=== PATIENT | female | born 1995 | race Caucasian/White ===

== ENCOUNTER 2017-07-04 20:16 | Emergency (ER) | payer OTHER ==
[~2017-07-04] VITALS: Ht 162.6 cm; Wt 83.6 kg
[~2017-07-04 20:16] MED LIST: ARTI99.0 OU; DIAM500C PO; IBUP-1114 PO; IBUP1TAB7 PO; IBUPOTC PO; LAMO1TAB PO; LORA10TA2 PO; SERO1TAB3 PO
--- NOTE | 2017-07-04 23:40 | REPUSA ---
Clinical history: Pain. Findings: Real-time transabdominal and transvaginal ultrasound images of the pelvis were obtained. An anteverted uterus is noted, measuring 8.4 x 3.6 x 4.4 cm. The uterus demonstrates normal echotexture and echogenicity. The endometrial stripe measures 18 mm and is within normal limits. The right ovary measures 2.7 x 2.2 x 1.9 cm. The left ovary measures 3.4 x 2.6 x 2.7 cm. There is a 1.[address] in the left ovary. No adnexal masses are seen. Color Doppler flow is seen within both ovaries. The re is no evidence of free fluid. Impression: 1. Echogenic, thickened endometrial stripe. In a patient of this age, this is likely a physiologic fi ndings. Correlation with the patient's menstrual cycle is recommended. 2. Simple left ovarian cyst.
[2017-07-05 00:41] VITALS: BP 141/90
== END 2017-07-05 00:43 | disposition home or self-care (01) ==
LOC: M ED 20:16
DX: N83.202 Unspecified ovarian cyst, left side (principal); J45.909 Unspecified asthma, uncomplicated; F60.5 Obsessive-compulsive personality disorder; Z87.42 Personal history of other diseases of the female genital tract; Z79.899 Other long term (current) drug therapy; Z88.5 Allergy status to narcotic agent; Z88.1 Allergy status to other antibiotic agents

== ENCOUNTER 2018-07-10 19:55 | Outpatient (CLI) | payer OTHER | END 2018-07-10 21:35 | disposition home or self-care (01) | LOC: M LDO 19:55 | DX: O36.8130 Decreased fetal movements, third trimester, not applicable or unspecified (principal); Z3A.34 34 weeks gestation of pregnancy | CPT/HCPCS: 59025 ==

== ENCOUNTER 2018-08-20 22:59 | Inpatient (IN) | payer OTHER ==
[2018-08-21] MEDS ORDERED: LR 1,000 ML IV (06:19)
[2018-08-21] MEDS ORDERED: OXYTOCIN DRIP 30 UNITS in APPROPRIATE DILUENT 1 EA IV (06:30)
[2018-08-21] MEDS ORDERED: ACETAMINOPHEN 500 MG TAB PO (11:30)
[2018-08-21] MEDS ORDERED: FENTANYL 2MCG/ML ROPIVACAINE 0.2% IN 0.9% NACL 200ML IVBAG As Ordered (13:09)
[2018-08-21] MEDS ORDERED: ePHEDrine SULFATE 25 MG/5 ML(5MG/ML) SYRINGE IV (14:05)
[2018-08-21] MEDS ORDERED: diphenhydrAMINE INJ 50MG/ML VIAL (J1200) IV (14:05)
[2018-08-21] MEDS ORDERED: FENTANYL/ROPIVACAINE/NACL BAG 200 ML EPIDURAL (14:05)
[2018-08-21] MEDS ORDERED: NALOXONE INJ 0.4 MG/1 ML VIAL (J2310) IV (14:05)
[2018-08-21] MEDS ORDERED: LACTATED RINGER'S 1000 ML IV (14:05)
[2018-08-21] MEDS ORDERED: EPIDURAL/PCA KEYS XX (14:05)
[2018-08-21] MEDS ORDERED: EPIDURAL COMMENT XX (14:05)
[2018-08-21] MEDS ORDERED: REFRIGERATOR IV KEYS XX (14:05)
[2018-08-21] MEDS ORDERED: ONDANSETRON 4MG/2ML VIAL (J2405) IV (14:05)
[2018-08-21] MEDS ORDERED: DOCUSATE SODIUM 100 MG CAP PO (18:00)
[2018-08-21] MEDS ORDERED: MEASLES,MUMPS,RUBELLA VACCINE INJ (MMR-II) (90707) SC (18:00)
[2018-08-21] MEDS ORDERED: MOM 30ML SUSPENSION UDC PO (18:00)
[2018-08-21] MEDS ORDERED: ANUSOL HC CREAM 30GM TOP (18:00)
[2018-08-21] MEDS ORDERED: RHOGAM 300 MCG (1500 IU) INJ (J2790) IM (18:00)
[2018-08-21] MEDS ORDERED: DIBUCAINE 1% OINTMENT 30GM TOP (18:00)
[2018-08-21] MEDS ORDERED: METHYLERGONOVINE MALEATE 0.2 MG TAB PO (18:00)
[2018-08-21 18:01] LABS: CORD GAS ABE A -2.7; CORD GAS HCO3 A 25.8 MEQ/L; CORD GAS O2 SAT A < 15.0 %; CORD GAS PCO2 A 59.7 mmHg; CORD GAS PH A 7.254 UNITS; CORD GAS PO2 A < 10.0 mmHg; CORD GAS TCO2 A 27.7 MEQ/L
[2018-08-21 18:03] LABS: CORD GAS ABE V -4.3; CORD GAS HCO3 V 20.1 MEQ/L; CORD GAS O2 SAT V 72.1 %; CORD GAS PCO2 V 35.5 mmHg; CORD GAS PO2 V 29.1 mmHg; CORD GAS SBC V 20.3 MEQ/L; CORD GAS TCO2 V 21.2 MEQ/L
[2018-08-21] MEDS: LORATADINE 10 MG TAB PO (20:55)
[2018-08-21] MEDS: AcetaZOLAMIDE 500 MG ER CAP PO (20:55)
[2018-08-21] MEDS ORDERED: OXYTOCIN INJ 10 UNITS/ML VIAL (J2590) As Ordered (23:06)
[2018-08-22] MEDS: IBUPROFEN 800 MG TAB PO ×2 (00:57→14:22)
[2018-08-22] MEDS: PRENATAL VITAMINS CHEWABLE TABLET PO (08:31)
[2018-08-22] MEDS: LORATADINE 10 MG TAB PO (08:31)
[2018-08-22] MEDS: ACETAMINOPHEN 500 MG TAB PO ×2 (08:39→17:56)
[2018-08-22 09:17] LABS: HEMOGLOBIN 11.1 g/dl (12.0-15.5); MEAN CORPUSCULAR HEMOGLOBIN 29.9 pg (27.0-33.0); MEAN CORPUSCULAR HGB CONC 32.6 g/dl (32.0-36.5); MEAN CORPUSCULAR VOLUME 91.6 fl (80.0-96.0); PLATELET COUNT, AUTOMATED 172 10^3/uL (150-450); RED BLOOD COUNT 3.71 10^6/uL (4.00-5.40); RED CELL DISTRIBUTION WIDTH 14.2 % (11.5-14.5)
[2018-08-22] MEDS: AcetaZOLAMIDE 500 MG ER CAP PO (21:08)
[2018-08-23] MEDS: LORATADINE 10 MG TAB PO (08:18)
[2018-08-23] MEDS: PRENATAL VITAMINS CHEWABLE TABLET PO (08:18)
[2018-08-23] MEDS: ACETAMINOPHEN 500 MG TAB PO (08:19)
== END 2018-08-23 12:10 | disposition home or self-care (01) | DRG 807 ==
LOC: M LDO 22:59 → M LDI 08-21 02:19 → M OBS 08-21 19:56
PROC: 10E0XZZ Delivery of Products of Conception, External Approach (ICD-10-PCS; principal; 2018-08-22)
PROC: 0HQ9XZZ Repair Perineum Skin, External Approach (ICD-10-PCS; 2018-08-22)
DX: O48.0 Post-term pregnancy (principal); Z37.0 Single live birth; Z3A.40 40 weeks gestation of pregnancy; O99.214 Obesity complicating childbirth; E66.9 Obesity, unspecified; O69.81X0 Labor and delivery complicated by cord around neck, without compression, not applicable or unspecified; O70.0 First degree perineal laceration during delivery; Z68.32 Body mass index [BMI] 32.0-32.9, adult

== ENCOUNTER → 2018-08-21 | Outpatient (CLI) | payer OTHER ==
[~2018-08-21] MED LIST changes: -ARTI99.0 OU; -DIAM500C PO; -IBUP-1114 PO; -IBUP1TAB7 PO; -IBUPOTC PO; -LAMO1TAB PO; -LORA10TA2 PO; +OXYTOCIN 30 UNITS IN 0.9% NaCl 500ML IV BAG (J2590) As Ordered; -SERO1TAB3 PO
[2018-08-21 02:59] LABS: HEMATOCRIT 36.2 % (36.0-47.0); HEMOGLOBIN 11.8 g/dl (12.0-15.5); MEAN CORPUSCULAR HEMOGLOBIN 29.6 pg (27.0-33.0); MEAN CORPUSCULAR HGB CONC 32.6 g/dl (32.0-36.5); PLATELET COUNT, AUTOMATED 182 10^3/uL (150-450); RED BLOOD COUNT 3.98 10^6/uL (4.00-5.40); RED CELL DISTRIBUTION WIDTH 13.7 % (11.5-14.5); WHITE BLOOD COUNT 15.1 10^3/uL (4.0-10.0)
== END ==
LOC: M LDO 01:45
DX: O48.0 Post-term pregnancy (principal)